=== PATIENT | male | born 1965 ===

== ENCOUNTER 2021-01-31 11:11 | Inpatient (IN) | payer SELFPAY ==
[2021-01-31] MEDS ORDERED: Lorazepam 2 MG/ML VIAL ONE (11:28)
[2021-01-31] MEDS ORDERED: Multivitamins, Adult 10 ML, Thiamine HCl 100 MG, Folic Acid 1 MG in Dextrose 5 %-0.45 %... IV SCH (11:45)
[2021-01-31 12:19] LABS: #Basophils 0.1 thou/uL (0.0-0.2); #Lymphocytes 1.4 thou/uL (1.20-3.40); #Monocytes 0.9 thou/uL (0.11-0.59); #Neutrophils 5.5 thou/uL (1.40-6.50); %Basophils 0.8 % (0.0-1.0); %Lymphocytes 17.5 % (21.0-51.0); %Monocytes 11.1 % (0.0-10.0); %Neutrophils 70.6 % (42.0-75.0); Hemoglobin 16.5 g/dL (14.0-18.0); Mean Corpuscular HGB CONC 35.1 g/dL (32.0-36.0); Mean Corpuscular Volume 94.1 fL (78.0-98.0); Platelet Count 78 thou/uL (130-400); Platelet Morphology Comment Appears Decreased; RBC Distribution Width 14.3 % (11.5-14.5); RBC Morphology Normal; Red Blood Cell (RBC) Count 4.99 mill/uL (4.70-6.10); White Blood Cell (WBC) Count 7.7 thou/uL (4.8-10.8)
[2021-01-31 12:20] LABS: ALT (SGPT) 214 U/L (8-55); AST (SGOT) 239 U/L (5-34); Acetaminophen Less than 6.0 mcg/mL (10.0-30.0); Albumin 3.7 g/dL (3.5-5.0); Alcohol 341 mg/dL (Less than 10); Alkaline Phosphatase 89 U/L (40-110); Anion Gap 23 mmol/L (10-20); BUN (Urea Nitrogen) 7 mg/dL (8.4-25.7); Bilirubin, Total 1.5 mg/dL (0.2-1.2); CK (CPK) 1133 U/L (30-200); Calc. Creatinine Clearance 0 mL/min (70-130); Calcium 8.3 mg/dL (7.8-10.44); Carbon Dioxide 18 mmol/L (22-29); Chloride 85 mmol/L (98-107); Globulin 2.8 g/dL (2.4-3.5); Glucose 163 mg/dL (70-105); Lipase 168 U/L (8-78); Magnesium 1.8 mg/dL (1.6-2.6); Potassium 3.7 mmol/L (3.5-5.1); Protein, Total 6.5 g/dL (6.0-8.3); Salicylate Less than 8.0 mg/dL (15.0-30.0); Sodium 122 mmol/L (136-145)
[2021-01-31] MEDS ORDERED: Acetaminophen 325 MG TAB PO PRN (14:39)
[2021-01-31] MEDS ORDERED: Senokot S 8.6-50 MG TAB PO PRN (14:39)
[2021-01-31] MEDS ORDERED: Lorazepam 2 MG/ML VIAL SLOW IVP PRN (14:47)
[2021-01-31] MEDS ORDERED: Sodium Chloride 0.9% 1,000 ML IV SCH (16:00)
[2021-01-31 16:32] VITALS: BMI 30.4
[2021-01-31] MEDS: Ondansetron PF 4 MG/2 ML Vial IVP PRN (17:50)
[2021-01-31] MEDS: Lorazepam 2 MG/ML VIAL SLOW IVP PRN (17:50)
[2021-01-31] MEDS: Nicotine 21 MG PATCH TD SCH (18:50)
[2021-01-31 19:22] LABS: Anion Gap 18 mmol/L (10-20); BUN (Urea Nitrogen) 5 mg/dL (8.4-25.7); Calc. Creatinine Clearance 184 mL/min (70-130); Calcium 7.6 mg/dL (7.8-10.44); Carbon Dioxide 21 mmol/L (22-29); Chloride 95 mmol/L (98-107); Glucose 102 mg/dL (70-105); Magnesium 1.9 mg/dL (1.6-2.6); Potassium 3.7 mmol/L (3.5-5.1); Sodium 130 mmol/L (136-145)
[2021-01-31] MEDS ORDERED: Promethazine HCl 12.5 MG in Sodium Chloride 0.9% 50 ML IVPB SCH (20:45)
[2021-01-31] MEDS ORDERED: Lorazepam 2 MG/ML VIAL SLOW IVP SCH (20:45)
[2021-01-31] MEDS ORDERED: chlordiazePOXIDE HCl 25 MG CAP PO SCH (21:00)
[2021-02-01] MEDS ORDERED: Metoprolol Tartrate 25 MG TAB PO SCH (02:00)
[2021-02-01] MEDS: Ondansetron PF 4 MG/2 ML Vial IVP PRN ×2 (02:06→08:25)
[2021-02-01] MEDS: Lorazepam 2 MG/ML VIAL SLOW IVP PRN ×4 (02:09→21:00)
[2021-02-01 06:15] LABS: Prothrombin Time 13.3 sec (12.0-14.7)
[2021-02-01 06:24] LABS: #Lymphocytes 1.1 thou/uL (1.20-3.40); #Monocytes 0.6 thou/uL (0.11-0.59); %Eosinophils 0.2 % (0.0-10.0); %Lymphocytes 18.8 % (21.0-51.0); %Monocytes 9.8 % (0.0-10.0); %Neutrophils 71.2 % (42.0-75.0); Hemoglobin 13.8 g/dL (14.0-18.0); Mean Corpuscular HGB CONC 34.9 g/dL (32.0-36.0); Mean Corpuscular Hemoglobin 33.5 pg (27.0-31.0); Mean Platelet Volume 8.5 fL (7.4-10.4); Platelet Count 43 thou/uL (130-400); RBC Distribution Width 14.3 % (11.5-14.5); Red Blood Cell (RBC) Count 4.12 mill/uL (4.70-6.10); White Blood Cell (WBC) Count 5.6 thou/uL (4.8-10.8)
[2021-02-01 06:32] LABS: ALT (SGPT) 135 U/L (8-55); AST (SGOT) 118 U/L (5-34); Albumin 3.2 g/dL (3.5-5.0); Alkaline Phosphatase 76 U/L (40-110); Anion Gap 14 mmol/L (10-20); BUN (Urea Nitrogen) 7 mg/dL (8.4-25.7); Bilirubin, Total 1.8 mg/dL (0.2-1.2); CK (CPK) 620 U/L (30-200); Calc. Creatinine Clearance 169 mL/min (70-130); Calcium 7.9 mg/dL (7.8-10.44); Carbon Dioxide 23 mmol/L (22-29); Cardiac Risk 1.9 (Less than 4.5); Chloride 96 mmol/L (98-107); Cholesterol 121 mg/dl (< 200 Desired); Globulin 2.1 g/dL (2.4-3.5); Glucose 95 mg/dL (70-105); HDL Cholesterol 64 mg/dL (>60 Neg Risk); LDL Cholesterol, Calculated 46 mg/dL; Lipase 103 U/L (8-78); Magnesium 1.8 mg/dL (1.6-2.6); Potassium 3.5 mmol/L (3.5-5.1); Protein, Total 5.3 g/dL (6.0-8.3); Sodium 129 mmol/L (136-145); Triglycerides 54 mg/dL (Less than 150)
[2021-02-01] MEDS: Thiamine 100 MG TAB PO SCH (08:25)
[2021-02-01] MEDS: Multivitamin W/ Minerals 1 TAB PO SCH (08:25)
[2021-02-01] MEDS: Folic Acid 1 MG TAB PO SCH (08:25)
[2021-02-01] MEDS ORDERED: chlordiazePOXIDE HCl 5 MG CAP PO SCH (09:00)
[2021-02-01 15:28] LABS: SARS-CoV-2 PCR by NAA Not Detected (NotDetected)
[2021-02-01] MEDS: Nicotine 21 MG PATCH TD SCH (16:35)
[2021-02-02] MEDS: Lorazepam 2 MG/ML VIAL SLOW IVP PRN ×3 (01:10→19:56)
[2021-02-02] MEDS: Folic Acid 1 MG TAB PO SCH (08:52)
[2021-02-02] MEDS: Multivitamin W/ Minerals 1 TAB PO SCH (08:52)
[2021-02-02] MEDS: Thiamine 100 MG TAB PO SCH (08:52)
[2021-02-03] MEDS: Lorazepam 2 MG/ML VIAL SLOW IVP PRN ×3 (00:33→20:39)
[2021-02-03 06:07] LABS: #Basophils 0.1 thou/uL (0.0-0.2); #Eosinphils 0.1 thou/uL (0.0-0.7); #Lymphocytes 1.8 thou/uL (1.20-3.40); #Monocytes 0.8 thou/uL (0.11-0.59); #Neutrophils 2.5 thou/uL (1.40-6.50); %Basophils 1.1 % (0.0-1.0); %Eosinophils 2.1 % (0.0-10.0); %Lymphocytes 33.8 % (21.0-51.0); %Monocytes 14.9 % (0.0-10.0); %Neutrophils 48.1 % (42.0-75.0); Hemoglobin 14.3 g/dL (14.0-18.0); Mean Corpuscular HGB CONC 35.3 g/dL (32.0-36.0); Mean Corpuscular Hemoglobin 33.8 pg (27.0-31.0); Mean Corpuscular Volume 95.7 fL (78.0-98.0); Mean Platelet Volume 7.8 fL (7.4-10.4); Platelet Count 68 thou/uL (130-400); RBC Distribution Width 14.7 % (11.5-14.5); Red Blood Cell (RBC) Count 4.22 mill/uL (4.70-6.10); White Blood Cell (WBC) Count 5.3 thou/uL (4.8-10.8)
[2021-02-03 06:19] LABS: ALT (SGPT) 100 U/L (8-55); AST (SGOT) 86 U/L (5-34); Albumin 3.2 g/dL (3.5-5.0); Alkaline Phosphatase 86 U/L (40-110); Anion Gap 12 mmol/L (10-20); BUN (Urea Nitrogen) 5 mg/dL (8.4-25.7); Bilirubin, Total 0.8 mg/dL (0.2-1.2); Calc. Creatinine Clearance 176 mL/min (70-130); Calcium 8.2 mg/dL (7.8-10.44); Carbon Dioxide 25 mmol/L (22-29); Chloride 100 mmol/L (98-107); Glucose 101 mg/dL (70-105); Protein, Total 5.2 g/dL (6.0-8.3); Sodium 134 mmol/L (136-145)
[2021-02-03] MEDS: Thiamine 100 MG TAB PO SCH (08:27)
[2021-02-03] MEDS: Multivitamin W/ Minerals 1 TAB PO SCH (08:27)
[2021-02-03] MEDS: Folic Acid 1 MG TAB PO SCH (08:27)
[2021-02-03] MEDS ORDERED: Electrolyte Replacement Protocol 1 EACH FS SCH (12:45)
[2021-02-03] MEDS ORDERED: Magnesium 2 GM/50 ML 2 GM in Premix Bag 1 BAG IVPB SCH (13:30)
[2021-02-03] MEDS: Potassium Chloride 20 MEQ TAB PO SCH ×2 (14:05→17:50)
[2021-02-03] MEDS: Melatonin 3 MG TAB PO PRN (20:59)
[2021-02-04 06:19] LABS: Hemoglobin 14.4 g/dL (14.0-18.0); Mean Corpuscular HGB CONC 33.4 g/dL (32.0-36.0); Mean Corpuscular Hemoglobin 32.2 pg (27.0-31.0); Mean Corpuscular Volume 96.4 fL (78.0-98.0); Mean Platelet Volume 7.4 fL (7.4-10.4); Platelet Count 114 thou/uL (130-400); Red Blood Cell (RBC) Count 4.48 mill/uL (4.70-6.10)
[2021-02-04 06:36] LABS: ALT (SGPT) 109 U/L (8-55); AST (SGOT) 77 U/L (5-34); Albumin 3.3 g/dL (3.5-5.0); Alkaline Phosphatase 88 U/L (40-110); Anion Gap 14 mmol/L (10-20); BUN (Urea Nitrogen) 6 mg/dL (8.4-25.7); Bilirubin, Total 0.8 mg/dL (0.2-1.2); Calc. Creatinine Clearance 159 mL/min (70-130); Calcium 8.5 mg/dL (7.8-10.44); Carbon Dioxide 25 mmol/L (22-29); Chloride 103 mmol/L (98-107); Globulin 2.3 g/dL (2.4-3.5); Glucose 111 mg/dL (70-105); Potassium 4.5 mmol/L (3.5-5.1); Protein, Total 5.6 g/dL (6.0-8.3); Sodium 137 mmol/L (136-145)
[2021-02-04 06:46] LABS: Lymphocytes 36 % (21-51); MDiff Complete? YES; Monocytes 15 % (0-10); Myelocyte 1 % (0-0); Neutrophil 46 % (42-75); Platelet Morphology Comment Appears Decreased; RBC Morphology Normal; Reactive Lymphocytes 2 % (0-10)
[2021-02-04] MEDS: Folic Acid 1 MG TAB PO SCH (08:28)
[2021-02-04] MEDS: Multivitamin W/ Minerals 1 TAB PO SCH (08:28)
[2021-02-04] MEDS: Lorazepam 2 MG/ML VIAL SLOW IVP PRN (08:28)
[2021-02-04] MEDS: Thiamine 100 MG TAB PO SCH (08:28)
[2021-02-05] MEDS: Multivitamin W/ Minerals 1 TAB PO SCH (12:29)
[2021-02-05] MEDS: Thiamine 100 MG TAB PO SCH (12:29)
[2021-02-05] MEDS: Folic Acid 1 MG TAB PO SCH (12:30)
[2021-02-05] MEDS: Lorazepam 2 MG/ML VIAL SLOW IVP PRN ×3 (12:48→22:00)
[2021-02-05] MEDS: Melatonin 3 MG TAB PO PRN (22:01)
[2021-02-06] MEDS: Thiamine 100 MG TAB PO SCH (08:49)
[2021-02-06] MEDS: Folic Acid 1 MG TAB PO SCH (08:49)
[2021-02-06] MEDS: Multivitamin W/ Minerals 1 TAB PO SCH (08:49)
[2021-02-06] MEDS: Lorazepam 2 MG/ML VIAL SLOW IVP PRN (15:12)
[2021-02-06] MEDS: Lorazepam 1 MG TAB PO PRN (21:11)
[2021-02-06] MEDS: Melatonin 3 MG TAB PO PRN (21:11)
[2021-02-07] MEDS: Thiamine 100 MG TAB PO SCH (09:02)
[2021-02-07] MEDS: Folic Acid 1 MG TAB PO SCH (09:02)
[2021-02-07] MEDS: Multivitamin W/ Minerals 1 TAB PO SCH (09:02)
[2021-02-07] MEDS: Lorazepam 1 MG TAB PO PRN (09:04)
[2021-02-07 09:32] VITALS: BP 102/64; TEMP 98.4
== END 2021-02-07 09:57 | disposition home or self-care (01) | DRG 896 ==
LOC: ERS 11:11 → SUATTDRO 11:11 → T4-A 16:20
PROVIDERS: ADMIT Internal Medicine; ATTEND Family Medicine
PROC: HZ2ZZZZ Detoxification Services for Substance Abuse Treatment (ICD-10-PCS; principal; 2021-01-31)
DX: F10.131 Alcohol abuse with withdrawal delirium (principal); Z20.822 Contact with and (suspected) exposure to COVID-19; K85.90 Acute pancreatitis without necrosis or infection, unspecified; E87.1 Hypo-osmolality and hyponatremia; M62.82 Rhabdomyolysis; R45.851 Suicidal ideations; E87.2 Acidosis; F10.121 Alcohol abuse with intoxication delirium; Y90.8 Blood alcohol level of 240 mg/100 ml or more; K70.10 Alcoholic hepatitis without ascites; D69.6 Thrombocytopenia, unspecified; F17.210 Nicotine dependence, cigarettes, uncomplicated; E86.0 Dehydration; F32.9 Major depressive disorder, single episode, unspecified; R13.10 Dysphagia, unspecified; S00.83XA Contusion of other part of head, initial encounter; S80.212A Abrasion, left knee, initial encounter; S80.211A Abrasion, right knee, initial encounter; S40.812A Abrasion of left upper arm, initial encounter; S40.811A Abrasion of right upper arm, initial encounter; W18.30XA Fall on same level, unspecified, initial encounter; Z91.81 History of falling; Z79.899 Other long term (current) drug therapy; Z71.41 Alcohol abuse counseling and surveillance of alcoholic
CPT/HCPCS: 36415; 70450; 71045; 72125; 74220; 80053; 80061; 80307; 82550; 83690; 83735; 84443; 84484; 85025; 85610; 93005; J2060; J2405; J2550; J3411; J3475; J7042; J7050; U0003; U0005